=== PATIENT | male | born 1990 | race Caucasian/White ===

== ENCOUNTER → 2021-12-23 08:01 | Outpatient (CLI) | payer SELFPAY ==
--- NOTE | 2021-12-23 08:16 | DI.RAD.S_ITS ---
PROCEDURE: XR WRIST LT MIN 3V INDICATIONS: left arm injury TECHNIQUE: 3 views of the wrist were acquired. COMPARISON: None. FINDINGS: Bones: Acute comminuted and impacted fracture involving distal radius is seen with fracture line extending to radiocarpal joint space. There is also lateral and volar displacement of fractured fragments. There is also a slightly displaced fracture involving base of ulnar styloid. No suspicious bony lesions. Scaphoid view: Scaphoid is grossly intact. Soft tissues: Soft tissue swelling surrounding wrist joint is seen. No suspicious soft tissue calcifications. IMPRESSION: Acute comminuted impacted and displaced distal radial fracture as above. Slightly displaced ulnar styloid base fracture. Surrounding wrist soft tissue swelling. Dictated by: Shiv Orosco M.D. on 12/23/2021 at 9:07 Approved by: Shiv Orosco M.D. on 12/23/2021 at 9:08
--- NOTE | 2021-12-23 08:16 | DI.RAD.S_ITS ---
PROCEDURE: XR FOREARM LT 2V INDICATIONS: left arm injury TECHNIQUE: 2 views of the forearm were acquired. COMPARISON: None. FINDINGS: Bones: There is a comminuted, displaced, impacted and intra-articular fracture of the distal radius. Distal fragment is anteriorly displaced. Ulna styloid fracture is present. Soft tissues: No suspicious soft tissue calcifications or masses. IMPRESSION: Comminuted, displaced intra-articular distal radial fracture. Ulna styloid fracture is present. Dictated by: Judith Cardoza M.D. on 12/23/2021 at 9:17 Approved by: Judith Cardoza M.D. on 12/23/2021 at 9:17
--- NOTE | 2021-12-23 08:16 | DI.RAD.S_ITS ---
PROCEDURE: XR HAND LT MIN 3V INDICATIONS: left arm injury TECHNIQUE: 3 views of the hand(s) acquired. COMPARISON: [facility], CR, XR WRIST LT MIN 3V, 12/23/2021, 8:27. FINDINGS: Bones: There is a comminuted, displaced, impacted intra-articular fracture of the distal radius. The distal fragment is anteriorly displaced. In addition, ulna styloid fracture is present. Soft tissues: No suspicious soft tissue calcifications. IMPRESSION: Displaced intra-articular distal radial fracture. Ulna styloid fracture is also present. Dictated by: Judith Cardoza M.D. on 12/23/2021 at 9:15 Approved by: Judith Cardoza M.D. on 12/23/2021 at 9:16
== END ==
PROVIDERS: Referring Provider Nurse Practitioner Family; Visit Provider Nurse Practitioner Family
DX: S52.572A Other intraarticular fracture of lower end of left radius, initial encounter for closed fracture (principal); S52.612A Displaced fracture of left ulna styloid process, initial encounter for closed fracture; X58.XXXA Exposure to other specified factors, initial encounter
CPT/HCPCS: 73090; 73110; 73130

== ENCOUNTER 2022-11-10 03:55 | Emergency (ER) | payer SELFPAY ==
[2022-11-10 04:02] VITALS: BP 131/77; PULSE 70; RESP 16; TEMP 36.3; O2SAT 100; BMI 25.0
--- NOTE | 2022-11-10 04:26 | ED_ITS ---
HPI - Animal Bite General Chief Complaint: Wound/Laceration Stated Complaint: busted lip Time Seen by Provider: 11/10/22 04:03 Source: patient Mode of arrival: Ambulatory History of Present Illness HPI narrative: Otherwise healthy 32-year-old gentleman was working with his dog when the dog snapped his face biting through his upper lip. The incident was clearly accidental. Bleeding has been controlled. Related Data Previous Rx's Medication Instructions Recorded amoxicillin 875 mg-potassium 1 tab PO BID #10 tabs 11/10/22 clavulanate 125 mg tablet Review of Systems Review of Systems Narrative: Remainder of complete review of systems is otherwise unremarkable except for that included in the HPI. Patient History Medical History (Updated 11/10/22 @ 04:58 by Chrissie George MD) Anaphylaxis Social History Smoking Status: Former smoker Smoking Status: Former smoker alcohol intake frequency: 0-2 drinks per day Substance Use Type: marijuana Exam Initial Vital Signs Initial Vital Signs: Vital Signs Temperature 97.4 F L 11/10/22 04:02 Pulse Rate 70 11/10/22 04:02 Respiratory Rate 16 11/10/22 04:02 Blood Pressure 131/77 11/10/22 04:02 Pulse Oximetry 100 11/10/22 04:02 Oxygen Delivery Method 11/10/22 04:02 General: Alert appropriate in no acute distress HEENT: Laceration along the frenulum on the left side through the vermilion border and through the orbicularis auris but not including buccal mucosa. 5 cm. Bleeding is controlled Neck: Well-healed cricothyrotomy scar Respiratory: Able to speak in full sentences, no obvious respiratory distress Skin: No obvious rashes, warm and dry Neurologic: Grossly intact no obvious asymmetries or abnormalities Psych: appropriate insight and affect, cooperative Procedures Laceration Repair Left side upper lip: Time of procedure: 04:51 Site: lip Side (If applicable): left Size (cm): 5 Description: involves david border Depth: involves muscle layer Local Anesthetic: lidocaine 1% Pre-repair: wound explored and irrigated extensively Skin layer closed with: nylon Skin layer suture size: 5-0 Number of sutures: 5 Technique: simple, interrupted Muscle layer closed with: vicryl Muscle layer suture size: 5-0 Technique: horizontal mattress Course Orders Ordered: Discontinued Medications Lidocaine HCl (Lidocaine 1% (Pf) 5 Ml) 10 ml INJ NOW ONE Stop: 11/10/22 04:32 Lidocaine HCl (Lidocaine 1% (Pf) 5 Ml) 10 ml INJ NOW ONE Stop: 11/10/22 04:33 Vital Signs Vital signs: Vital Signs - 8 hr 11/10/22 04:02 Temperature 97.4 F L Pulse Rate 70 Respiratory Rate 16 Blood Pressure 131/77 Pulse Oximetry 100 Oxygen Delivery Method Room Air MDM - Animal Bite MDM Narrative Medical decision making narrative: CC: Patient's own dog, pit bull braden mix was startled as his own or was trying to take away something he was chewing on in the middle of the night. Snapped and bit through the upper lip. No other injuries. This is self-limited injury with potential for moderate deformity Complicating co-morbidities: Corroborating data: Data collected from: patient, significant other Medical records reviewed: Family medicine records reviewed Differential considered: Lip laceration minimal intraoral injury Exam documented above, pertinent findings include: Superficial laceration from the ala to the edge of his mustache and then deeper laceration through the lip, orbicularis auris, vermilion border but not including buccal mucosa Treatments: Sutures placed Re-evaluations: Tolerated procedure well Discussion: Augmentin for 5 days and sutures out in 7 days Diagnosis: Lip laceration secondary to dog bite, provoked incident patient's own dog. Disposition: see below, along with detailed discharge instructions that have been reviewed with patient as well as indications for ED re-evaluation and additional outpatient follow up Discharge Plan Departure Patient Disposition: Home Clinical Impression: Laceration Instructions: DI for Laceration Repair Activity Restrictions/Additional Instructions: Thank you for coming in today The area in the middle of your face has lots of blood flow so infections are unusual however we typically do treat and will bites with Augmentin. I have given you a prescription for 5 days. Prescription was electronically transmitted to [facility] The sutures need to come out on or about November 17. You are welcome to go to the walk-in clinic or return to the emergency department to have these removed. If you do notice any increasing redness pain, swelling or drainage you do need to be seen sooner. Do expect quite a bit of swelling over the next 24 hours given the anesthetic used and the injury itself. Ice may be helpful. Using 400 mg of ibuprofen (2 [id number] pills) and 1 Tylenol every 6 hours can be very helpful in controlling pain. If you find that you are getting worse or develop any new symptoms, please feel free to return to the emergency department for further evaluation. Prescriptions: New amoxicillin-pot clavulanate 875-125 mg tablet 1 tab PO BID Qty: 10 0RF Referrals: Miscellaneous,Doctor, MD [Primary Care Provider] - Stand Alone Forms: Patient Portal/API
[2022-11-10 05:10] VITALS: BP 134/76; PULSE 72; RESP 16; TEMP 36.3; O2SAT 99
--- NOTE | 2022-11-10 07:02 | PC.NURSE ---
Dianne PF administered by for wound repair. Vial unavailable to scan.
== END 2022-11-10 05:05 | disposition home or self-care (01) ==
PROVIDERS: Emergency Provider Emergency Medicine
DX: S01.551A Open bite of lip, initial encounter (principal); W54.0XXA Bitten by dog, initial encounter
CPT/HCPCS: 13132; 99282; 99283